=== PATIENT | male | born 1980 | race African-American/Black ===

== ENCOUNTER 2017-09-09 20:46 | Emergency (ER) | payer SELFPAY ==
[2017-09-09] MEDS ORDERED: Acetaminophen 500 MG TAB ONE (21:28)
--- NOTE | 2017-09-09 21:46 | RAD ---
TWO VIEWS CHEST: 09/09/17 PROVIDED CLINICAL HISTORY: Cough. FINDINGS: Comparison 04/16/16. Cardiac and mediastinal silhouette is within normal limits. The lungs appear clear. There is no pleur al fluid or pneumothorax apparent. IMPRESSION: No evidence for an acute cardiopulmonary process. POS: [facility]
[2017-09-09 22:45] LABS: Hematocrit 49.2 % (42.0-52.0); Red Blood Cell (RBC) Count 5.26 mill/uL (4.70-6.10)
[2017-09-09] MEDS ORDERED: Ketorolac Tromethamine 30 MG/ML VIAL ONE (22:55)
[2017-09-09 23:01] LABS: Lactic Acid - Sepsis 1.1 mmol/L (0.5-2.2)
[2017-09-09 23:07] LABS: Band 1 % (5-11); Neutrophil 73 % (42-75); Troponin I Less than 0.010 ng/mL (< 0.028)
[2017-09-09 23:15] LABS: ALT (SGPT) 12 U/L (8-55); AST (SGOT) 21 U/L (5-34); Alkaline Phosphatase 72 U/L (40-150); Anion Gap 14 mmol/L (10-20); BUN (Urea Nitrogen) 12 mg/dL (8.9-20.6); Bilirubin, Total 0.4 mg/dL (0.2-1.2); Calc. Creatinine Clearance 0 mL/min (70-130); Calcium 9.3 mg/dL (7.8-10.44); Carbon Dioxide 22 mmol/L (22-29); Chloride 106 mmol/L (98-107); Estimated GFR-MDRD 70; Globulin 3.8 g/dL (2.4-3.5); Protein, Total 8.1 g/dL (6.0-8.3)
--- NOTE | 2017-09-18 10:00 | EKG ---
Test Reason : Blood Pressure : / mmHG Vent. Rate : 100 BPM Atrial Rate : 100 BPM P-R Int : 152 ms QRS Dur : 070 ms QT Int : 340 ms P-R-T Axes : 075 046 054 degrees QTc Int : 438 ms Normal sinus rhythm Normal ECG Confirmed by NOE CONNELL, RACHELLE Jane ([id number]), newspaper editor KRISHNA WHITE ([id number]) on 09/18/2017 10:00:15 AM Referred By: Confirmed By:RACHELLE LIU MD
== END 2017-09-10 01:14 | disposition home or self-care (01) ==
LOC: ERS 20:46
DX: J18.9 Pneumonia, unspecified organism (principal)
CPT/HCPCS: 71020; 80053; 82553; 83605; 84484; 85025; 87040; 87081; 87430; 93005; 94640; 94760; 96361; 96374; J1885; J7620

== ENCOUNTER 2017-11-23 10:05 | Emergency (ER) | payer SELFPAY ==
[2017-11-23 10:28] LABS: #Basophils 0.1 thou/uL (0.0-0.2); #Eosinphils 0.3 thou/uL (0.0-0.7); #Lymphocytes 3.8 thou/uL (1.20-3.40); #Monocytes 1.3 thou/uL (0.11-0.59); #Neutrophils 6.8 thou/uL (1.40-6.50); %Eosinophils 2.6 % (0.0-10.0); %Lymphocytes 30.7 % (21.0-51.0); %Monocytes 10.7 % (0.0-10.0); Hemoglobin 15.9 g/dL (14.0-18.0); Mean Corpuscular Hemoglobin 31.6 pg (27.0-31.0); Mean Corpuscular Volume 92.9 fl (80.0-94.0); Mean Platelet Volume 8.3 fL (7.4-10.4); Platelet Count 168 thou/uL (130-400); RBC Distribution Width 13.2 % (11.5-14.5); Red Blood Cell (RBC) Count 5.03 mill/uL (4.70-6.10); White Blood Cell (WBC) Count 12.4 thou/uL (4.8-10.8)
--- NOTE | 2017-11-23 10:46 | RAD ---
PORTABLE CHEST 1 VIEW: Date: 11/23/17 Time: 1023 hours HISTORY: Dyspnea, wheezing. FINDINGS: Comparison made with exam of 09/09/17. The heart size is normal. The lungs are expanded without focal areas of consolidation, pneumothorax, or pleural effusions. IMPRESSION: No radiographic evidence of acute cardiopulmonary process. POS: [facility]
[2017-11-23 10:50] LABS: ALT (SGPT) 16 U/L (8-55); AST (SGOT) 30 U/L (5-34); Alkaline Phosphatase 75 U/L (40-150); Anion Gap 13 mmol/L (10-20); BUN (Urea Nitrogen) 7 mg/dL (8.9-20.6); Bilirubin, Total 0.6 mg/dL (0.2-1.2); Calc. Creatinine Clearance 0 mL/min (70-130); Calcium 8.9 mg/dL (7.8-10.44); Carbon Dioxide 23 mmol/L (22-29); Chloride 106 mmol/L (98-107); Estimated GFR-MDRD Greater than 90; Globulin 3.5 g/dL (2.4-3.5); Glucose 88 mg/dL (70-105); Potassium 3.6 mmol/L (3.5-5.1); Protein, Total 7.5 g/dL (6.0-8.3); Sodium 138 mmol/L (136-145)
== END 2017-11-23 12:21 | disposition home or self-care (01) ==
LOC: ERS 10:05
DX: J45.901 Unspecified asthma with (acute) exacerbation (principal); Z79.899 Other long term (current) drug therapy
CPT/HCPCS: 36415; 71045; 80053; 85025; 94640; 94760; 99406; J7620

== ENCOUNTER 2017-12-15 18:48 | Emergency (ER) | payer SELFPAY ==
[2017-12-15] MEDS ORDERED: Dexamethasone 4 MG TAB ONE (19:37)
--- NOTE | 2017-12-15 20:28 | RAD ---
SINGLE VIEW OF THE CHEST 12/15/17 COMPARISON: None. HISTORY: Asthma and wheezing. FINDINGS: Single view of the chest shows a normal sized cardiomediastinal silhouette. There is no evidence of c onsolidation, mass, or pleural effusion. The bones are unremarkable. IMPRESSION: No evidence of acute cardiopulmonary disease. POS: [facility]
== END 2017-12-15 20:40 | disposition home or self-care (01) ==
LOC: ERS 18:48
DX: J45.909 Unspecified asthma, uncomplicated (principal)
CPT/HCPCS: 71046; 93005; J7620; J8540

== ENCOUNTER 2017-12-22 02:04 | Emergency (ER) | payer SELFPAY ==
--- NOTE | 2017-12-22 08:04 | RAD ---
PORTABLE CHEST: HISTORY: Dyspnea. FINDINGS: Lung luna are clear. Heart and mediastinum appear normal. IMPRESSION: No acute finding. POS: [facility]
--- NOTE | 2018-01-21 14:58 | EKG ---
Test Reason : Blood Pressure : / mmHG Vent. Rate : 089 BPM Atrial Rate : 089 BPM P-R Int : 176 ms QRS Dur : 078 ms QT Int : 344 ms P-R-T Axes : 080 036 045 degrees QTc Int : 418 ms Normal sinus rhythm ST elevation, consider early repolarization Borderline ECG Confirmed by LAURA CONNELL, RHEA ([id number]), department editor KRISHNA WHITE ([id number]) on 01/21/2018 2:57:31 PM Referred By: Confirmed By:RHEA SANCHEZ MD
== END 2017-12-22 02:11 | disposition home or self-care (01) ==
LOC: ERS 02:04
DX: R07.9 Chest pain, unspecified (principal); J45.909 Unspecified asthma, uncomplicated; F16.10 Hallucinogen abuse, uncomplicated; F17.210 Nicotine dependence, cigarettes, uncomplicated
CPT/HCPCS: 71045; 93005

== ENCOUNTER 2017-12-30 09:38 | Emergency (ER) | payer SELFPAY ==
[2017-12-30 10:45] LABS: #Basophils 0.1 thou/uL (0.0-0.2); #Eosinphils 0.3 thou/uL (0.0-0.7); #Lymphocytes 3.2 thou/uL (1.20-3.40); #Neutrophils 6.6 thou/uL (1.40-6.50); %Basophils 0.5 % (0.0-1.0); %Eosinophils 2.3 % (0.0-10.0); %Lymphocytes 28.7 % (21.0-51.0); %Monocytes 8.9 % (0.0-10.0); %Neutrophils 59.7 % (42.0-75.0); Hemoglobin 15.1 g/dL (14.0-18.0); Mean Corpuscular HGB CONC 32.4 g/dL (32.0-36.0); Mean Corpuscular Hemoglobin 30.2 pg (27.0-31.0); Mean Corpuscular Volume 93.1 fl (80.0-94.0); Mean Platelet Volume 8.6 fL (7.4-10.4); Platelet Count 185 thou/uL (130-400); RBC Distribution Width 12.8 % (11.5-14.5); Red Blood Cell (RBC) Count 4.99 mill/uL (4.70-6.10); White Blood Cell (WBC) Count 11.1 thou/uL (4.8-10.8)
[2017-12-30 11:11] LABS: ALT (SGPT) 28 U/L (8-55); AST (SGOT) 29 U/L (5-34); Acetaminophen Less than 6.0 mcg/mL (10.0-30.0); Albumin 3.8 g/dL (3.5-5.0); Alcohol Less than 10 mg/dL (Less than 10); Alkaline Phosphatase 70 U/L (40-150); Anion Gap 11 mmol/L (10-20); BUN (Urea Nitrogen) 11 mg/dL (8.9-20.6); Bilirubin, Total 0.3 mg/dL (0.2-1.2); Calc. Creatinine Clearance 0 mL/min (70-130); Carbon Dioxide 26 mmol/L (22-29); Chloride 106 mmol/L (98-107); Estimated GFR-MDRD 83; Globulin 3.4 g/dL (2.4-3.5); Glucose 88 mg/dL (70-105); Potassium 3.8 mmol/L (3.5-5.1); Protein, Total 7.2 g/dL (6.0-8.3); Salicylate Less than 8.0 mg/dL (15.0-30.0); Sodium 139 mmol/L (136-145)
[2017-12-30 13:38] LABS: Amphetamine Not Detected (NotDetected); Barbiturates Screen Not Detected (NotDetected); Benzodiazepine Screen Not Detected (NotDetected); Cocaine Metabolite Screen Not Detected (NotDetected); Medtox Control Line Valid? VALID (VALID); Medtox Reader # READER 1; Methadone Not Detected (NotDetected); Methamphetamine Not Detected (NotDetected); Opiate Screen Not Detected (NotDetected); Oxycodone Screen Not Detected (NotDetected); Phencyclidine (PCP) Detected (NotDetected); THC/Cannabinoid Screen Detected (NotDetected); Tricyclic Screen Not Detected (NotDetected)
== END 2018-01-03 16:50 | disposition home or self-care (01) ==
LOC: ERS 09:38
DX: R45.851 Suicidal ideations (principal); F16.129 Hallucinogen abuse with intoxication, unspecified; F20.9 Schizophrenia, unspecified; I10 Essential (primary) hypertension; J45.909 Unspecified asthma, uncomplicated; F17.210 Nicotine dependence, cigarettes, uncomplicated
CPT/HCPCS: 36415; 80053; 80306; 80307; 85025; 94640; J7620

== ENCOUNTER 2018-03-29 08:23 | Emergency (ER) | payer SELFPAY ==
[2018-03-29] MEDS ORDERED: Albuterol Sulfate 2.5 mg/0.5 ml Neb ONE (08:53)
[2018-03-29] MEDS ORDERED: Albuterol Sulfate 2.5 mg/3 ml Neb ONE (08:53)
[2018-03-29] MEDS ORDERED: Magnesium Sulfate 2 GM, Admixture Fee 1 EACH in Sodium Chloride 0.9% 100 ML IVPB SCH (09:15)
--- NOTE | 2018-03-29 09:46 | RAD ---
CHEST ONE VIEW: History: Dyspnea. Cough. Comparison: 12-22-17 FINDINGS: Cardiac silhouette and pulmonary vasculature are unremarkable. Mediastinum is midline. No confluent a irspace consolidation or evidence of pneumothorax. IMPRESSION: No active cardiopulmonary abnormalities are demonstrated. POS: [facility]
== END 2018-03-29 10:23 | disposition home or self-care (01) ==
LOC: ERS 08:23
DX: J45.901 Unspecified asthma with (acute) exacerbation (principal); I10 Essential (primary) hypertension; F17.210 Nicotine dependence, cigarettes, uncomplicated
CPT/HCPCS: 71045; 93005; 94640; 94760; 96360; J3475; J7050; J7611; J7620

== ENCOUNTER 2019-11-19 11:20 | Emergency (ER) | payer SELFPAY ==
[2019-11-19] MEDS ORDERED: Dexamethasone 10 MG/ML VIAL ONE (11:53)
--- NOTE | 2019-11-19 12:15 | RAD ---
PORTABLE CHEST: Date: 11/19/2019 HISTORY: Cough and congestion. FINDINGS: Lungs are clear of infiltrate. Heart and mediastinum appear normal. IMPRESSION: No acute findings. POS: [facility]
== END 2019-11-19 13:44 | disposition home or self-care (01) ==
LOC: ERS 11:20
DX: J45.901 Unspecified asthma with (acute) exacerbation (principal); F17.210 Nicotine dependence, cigarettes, uncomplicated; I10 Essential (primary) hypertension
CPT/HCPCS: 71045; J1100; J7620

== ENCOUNTER 2020-01-31 07:50 | Emergency (ER) | payer SELFPAY ==
[2020-01-31] MEDS ORDERED: predniSONE 20 MG TAB ONE (08:05)
== END 2020-01-31 09:15 | disposition home or self-care (01) ==
LOC: ERS 07:50
DX: J45.901 Unspecified asthma with (acute) exacerbation (principal); I10 Essential (primary) hypertension; F17.210 Nicotine dependence, cigarettes, uncomplicated; Z79.51 Long term (current) use of inhaled steroids
CPT/HCPCS: 94640; J7512; J7620

== ENCOUNTER 2020-02-18 03:36 | Emergency (ER) | payer SELFPAY ==
[2020-02-18] MEDS ORDERED: Albuterol Sulfate 2.5 mg/3 ml Neb ONE (03:54)
[2020-02-18] MEDS ORDERED: predniSONE 20 MG TAB ONE (05:28)
== END 2020-02-18 06:02 | disposition home or self-care (01) ==
LOC: ERS 03:36
DX: J45.909 Unspecified asthma, uncomplicated (principal); I10 Essential (primary) hypertension; F17.210 Nicotine dependence, cigarettes, uncomplicated; Z79.899 Other long term (current) drug therapy
CPT/HCPCS: 94644; J7512; J7611; J7620

== ENCOUNTER 2021-01-04 17:50 | Emergency (ER) | payer SELFPAY ==
[2021-01-04 18:18] LABS: #Basophils 0.1 thou/uL (0.0-0.2); #Eosinphils 0.4 thou/uL (0.0-0.7); #Lymphocytes 4.5 thou/uL (1.20-3.40); #Monocytes 1.3 thou/uL (0.11-0.59); #Neutrophils 8.7 thou/uL (1.40-6.50); %Basophils 0.7 % (0.0-1.0); %Eosinophils 2.8 % (0.0-10.0); %Lymphocytes 30.1 % (21.0-51.0); %Monocytes 8.8 % (0.0-10.0); %Neutrophils 57.6 % (42.0-75.0); Hemoglobin 15.5 g/dL (14.0-18.0); Mean Corpuscular HGB CONC 32.2 g/dL (32.0-36.0); Mean Corpuscular Hemoglobin 30.4 pg (27.0-31.0); Mean Corpuscular Volume 94.5 fL (78.0-98.0); Platelet Count 222 thou/uL (130-400); RBC Distribution Width 12.9 % (11.5-14.5); Red Blood Cell (RBC) Count 5.08 mill/uL (4.70-6.10); White Blood Cell (WBC) Count 15.1 thou/uL (4.8-10.8)
[2021-01-04 18:23] LABS: Bilirubin Negative (Negative); Blood, Urine Negative (Negative); Clarity Clear (Clear); Glucose, Urine (Dipstick) Normal (Negative); Ketone, Urine Negative (Negative); Leukocyte Negative Leu/uL (Negative); Nitrite Negative (Negative); Protein, Urine (Dipstick) Negative (Neg-Trace); Specific Gravity, Urine 1.009 (1.002-1.036); Urobilinogen Normal mg/dL (Less than 2)
[2021-01-04 18:24] LABS: Medtox Reader # READER 4
[2021-01-04] MEDS ORDERED: Ketamine 50 MG/ML (10ML VIAL) ONE (18:24)
[2021-01-04 18:31] LABS: Amphetamine Not Detected (NotDetected); Barbiturates Screen Not Detected (NotDetected); Benzodiazepine Screen Not Detected (NotDetected); Cocaine Metabolite Screen Not Detected (NotDetected); Medtox Control Line Valid? VALID (VALID); Methadone Not Detected (NotDetected); Methamphetamine Not Detected (NotDetected); Opiate Screen Not Detected (NotDetected); Oxycodone Screen Not Detected (NotDetected); Phencyclidine (PCP) Detected (NotDetected); THC/Cannabinoid Screen Not Detected (NotDetected); Tricyclic Screen Not Detected (NotDetected)
[2021-01-04 18:35] LABS: Acetaminophen Less than 6.0 mcg/mL (10.0-30.0); Alcohol Less than 10 mg/dL (Less than 10); Salicylate Less than 8.0 mg/dL (15.0-30.0)
[2021-01-04 18:36] LABS: ALT (SGPT) 37 U/L (8-55); AST (SGOT) 45 U/L (5-34); Alkaline Phosphatase 56 U/L (40-110); Anion Gap 19 mmol/L (10-20); BUN (Urea Nitrogen) 10 mg/dL (8.9-20.6); Bilirubin, Total 0.3 mg/dL (0.2-1.2); CK (CPK) 815 U/L (30-200); Calc. Creatinine Clearance 0 mL/min (70-130); Carbon Dioxide 19 mmol/L (22-29); Chloride 105 mmol/L (98-107); Glucose 147 mg/dL (70-105); Potassium 3.6 mmol/L (3.5-5.1); Sodium 139 mmol/L (136-145)
[2021-01-04] MEDS ORDERED: Lorazepam 2 MG/ML VIAL ONE (19:06)
== END 2021-01-04 22:00 ==
LOC: ERS 17:50
DX: F16.121 Hallucinogen abuse with intoxication with delirium (principal); I10 Essential (primary) hypertension; F17.210 Nicotine dependence, cigarettes, uncomplicated
CPT/HCPCS: 36415; 51701; 80053; 80306; 80307; 81003; 82550; 85025; 93005; 96372; 96374; J2060

== ENCOUNTER 2023-04-12 21:11 | Emergency (ER) | payer SELFPAY | END 2023-04-12 21:22 | disposition home or self-care (01) | LOC: ERS 21:11 | DX: Z02.89 Encounter for other administrative examinations (principal); I10 Essential (primary) hypertension; F17.210 Nicotine dependence, cigarettes, uncomplicated | CPT/HCPCS: 99282 ==